=== PATIENT | female | born 2000 | race Caucasian/White ===

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

== ENCOUNTER → 2022-07-23 | Outpatient (CLI) | payer OTHER ==
[2022-07-23 17:54] LABS: Basophils # (A) 0.06 X 10*3/uL (0.00-0.10); Basophils % (A) 0.6 %; HCT 46.8 % (37.2-46.3); HGB 15.2 g/dL (12.0-15.0); Immature Grans, Automated 0.3 %; Lymphocytes # (A) 4.31 X 10*3/uL (0.90-5.00); MCH 26.6 pg (27.0-32.0); MCHC 32.5 g/dL (32.0-37.0); Mean Platelet Volume 10.1 fL (9.5-12.2); Monocytes # (A) 0.52 X 10*3/uL (0.20-1.00); Monocytes % (A) 5.1 %; NRBC Per 100 WBC 0 /100 WBCS (0.0-0.0); Neutrophils # (A) 5.24 X 10*3/uL (1.80-7.70); Platelet Count 297 X 10*3/uL (140-440); RBC 5.71 X 10*6/uL (4.10-5.20); RDW 13.5 % (11.5-14.5); WBC 10.26 X 10*3/uL (4.50-10.00)
--- NOTE | 2022-07-23 18:58 | US ---
EXAMINATION TYPE: US thyroid st tissue head/neck DATE OF EXAM: 07/23/2022 COMPARISON: 11/10/2017 CLINICAL HISTORY: 22-year-old female E04.9 Goiter. Nontoxic goiter per order. TECHNIQUE: Multiple sonographic images of the thyroid gland are obtained. FINDINGS: GLAND SIZE: Right Lobe: 4.4 x 1.6 x 1.5 cm Overall Parenchyma: Slightly heterogeneous. Left Lobe: 5.2 x 1.4 x 1.3 cm Overall Parenchyma: Slightly heterogeneous. Isthmus Thickness: 0.25 cm NODULES RIGHT: # of nodules measured on right: 1 1. 0.5 X 0.3 x 0.1 cm, upper lateral, small colloid cyst. Prior size: Not seen prior LEFT: # of nodules measured on left: 0 ISTHMUS: # of nodules measured in the isthmus: 0 Bilateral neck scanned, no evidence of lymphadenopathy. IMPRESSION: Borderline size of the thyroid gland. A solitary small 5 mm colloid cyst on the right.
[2022-07-23 20:24] LABS: ALT 33 U/L (8-44); AST 24 U/L (13-35); African American GFR (CKD) 112.7 (60.0-200.0); Albumin 4.5 g/dL (3.8-4.9); Albumin/Globulin Ratio 1.38 (1.60-3.17); Alkaline Phosphatase 98 U/L (41-126); BUN/Creat Ratio 11.86 Ratio (12.00-20.00); Blood Urea Nitrogen 10.2 mg/dL (9.0-27.0); Calcium 10.1 mg/dL (8.7-10.3); Carbon Dioxide 23.8 mmol/L (20.0-27.5); Chloride 102 mmol/L (96-109); Chol/HDL Ratio 4.09 Ratio; Globulin 3.3 g/dL (1.6-3.3); Glucose 92 mg/dL (70-110); LDL Cholesterol,Calculated 104.4 mg/dL (0.0-131.0); Non-African American GFR(CKD) 97.2 (60.0-200.0); Potassium 4.3 mmol/L (3.5-5.5); Sodium 140 mmol/L (135-145); Total Protein 7.8 g/dL (6.2-8.2); VLDL Calculation 13.52 mg/dL (5.00-40.00)
== END | disposition home or self-care (01) ==
LOC: RADUSWWP 10:40
PROVIDERS: ATTEND Pediatrics Adolescent Medicine
DX: E04.1 Nontoxic single thyroid nodule (principal); J45.51 Severe persistent asthma with (acute) exacerbation; E55.9 Vitamin D deficiency, unspecified; N92.6 Irregular menstruation, unspecified; R63.5 Abnormal weight gain; Z68.54 Body mass index [BMI] pediatric, 95th percentile for age to less than 120% of the 95th percentile for age
CPT/HCPCS: 76536; 80053; 80061; 82306; 82626; 83036; 84403; 84439; 84443; 85025

== ENCOUNTER → 2022-09-02 | Outpatient (CLI) | payer OTHER ==
--- NOTE | 2022-09-03 06:21 | US ---
EXAMINATION TYPE: US pelvic complete DATE OF EXAM: 09/02/2022 COMPARISON: CT 2016 CLINICAL HISTORY: N92.6 IRREGULAR MENSTRUATION. Irregular menses TECHNIQUE: Transabdominal (TA). Date of LMP: 08/26/22 EXAM MEASUREMENTS: Uterus: 7.1 x 3.4 x 4.8 cm Endometrial Stripe: 0.6 cm Right Ovary: 2.2 x 3.1 x 1.7 cm Left Ovary: 3.0 x 2.3 x 2.3 cm 1. Uterus: Anteverted wnl 2. Endometrium: wnl 3. Right Ovary: follicles noted 4. Left Ovary: cystic area = 2.1 x 1.9 x 1.8cm 5. Bilateral Adnexa: wnl 6. Posterior cul-de-sac: wnl Anteverted uterus. Endometrial stripe measures within normal limits for proliferative phase of menstr ual cycle. No free fluid. Both ovaries seen and are symmetric and within normal limits in size. Left ovary has 2.1 cm dominant follicle or simple small ovarian cyst. IMPRESSION: No suspicious abnormalities identified on transabdominal pelvic ultrasound.
== END | disposition home or self-care (01) ==
LOC: RADUSWWP 16:43
PROVIDERS: ATTEND Pediatrics Adolescent Medicine
DX: N92.6 Irregular menstruation, unspecified (principal)
CPT/HCPCS: 76856

== ENCOUNTER → 2024-01-14 | Outpatient (CLI) | payer OTHER ==
--- NOTE | 2024-01-14 17:59 | US ---
EXAMINATION TYPE: US pelvic complete DATE OF EXAM: 01/14/2024 COMPARISON: NONE CLINICAL INDICATION: Female, 23 years old with history of E28.2 POLYCYSTIC OVARIAN SYNDROME; PCOS TECHNIQUE: TA. Transabdominal sonographic images of the pelvis were acquired. Date of LMP: 01-01-2024 EXAM MEASUREMENTS: Uterus: 8.0 x 4.2 x 3.4 cm Endometrial Stripe: 0.8 cm Right Ovary: 2.2 x 2.5 x 1.6 cm Left Ovary: 2.7 x 2.1 x 2.2 cm 1. Uterus: Anteverted wnl 2. Endometrium: wnl 3. Right Ovary: wnl,No evidence for polycystic ovarian morphology. 4. Left Ovary: 1.5 x 1.4 x 1.2cm No evidence for polycystic ovarian morphology. 5. Bilateral Adnexa: wnl 6. Posterior cul-de-sac: wnl IMPRESSION: No evidence for acute process. No evidence for polycystic ovarian morphology.
== END | disposition home or self-care (01) ==
LOC: RADUSWWP 15:26
PROVIDERS: ATTEND Pediatrics Adolescent Medicine
DX: E28.2 Polycystic ovarian syndrome (principal); E04.9 Nontoxic goiter, unspecified
CPT/HCPCS: 76536; 76856

== ENCOUNTER 2024-09-19 17:53 | Emergency (ER) | payer OTHER ==
[2024-09-19 18:24] VITALS: RESP 18; TEMP 97.6
--- NOTE | 2024-09-19 18:26 | ED ---
Dizziness HPI - General Source: patient, family, RN notes reviewed Mode of arrival: wheelchair Limitations: no limitations - History of Present Illness MD Complaint: dizziness, lightheadedness Onset/Timin -: days(s) Description: lightheadedness History of Trauma: No <Shine Walters - Last Filed: 09/19/24 18:24> <Monica Herrera - Last Filed: 09/25/24 22:50> - General Chief Complaint: Dizziness Stated Complaint: cough vomiting Time Seen by Provider: 09/19/24 18:10 - History of Present Illness Initial Comments: This is a 24-year-old female presenting with mother for hemoptysis x 1 day. Patient states she was diagnosed with bronchitis about 1 week ago and recently finished prescribed steroids. States she has been coughing up blood since earlier today along with nausea and vomiting of yellow bile. Patient endorses associated dizziness/lightheadedness with position change. Patient endorses history of asthma. Patient denies recent fever, chills, fatigue, chest pain, dyspnea, abdominal pain. (Shine Walters) 24-year-old female presenting with chief complaint of hemoptysis. Patient was diagnosed with bronchitis about 1 week ago, she was experiencing persistent cough and shortness of breath. She recently finished her Medrol Dosepak. She is currently on doxycycline. States that earlier today she was coughing up blood. She is also having nausea and vomiting. She does admit to some dizziness with changing positions. Patient does have history of asthma. No fever, chills, chest pain, abdominal pain, lower extremity swelling, control use, history of blood clots, recent surgery or travel. (Monica Herrera) - Related Data Home Medications Medication Instructions Recorded Confirmed Mometasone/Formoterol [Dulera 200 2 puff INHALATION RT-BID 03/14/16 08/08/18 Mcg/5 Mcg Inhaler] Albuterol Nebulized [Ventolin 2.5 mg INHALATION RT-Q4H PRN 04/08/18 08/08/18 Nebulized] Fexofenadine HCl 60 mg PO BID 04/08/18 08/08/18 Ipratropium-Albuterol Nebulize 3 ml INHALATION RT-BID PRN 04/08/18 08/08/18 [Duoneb 0.5 mg-3 mg/3 ml Soln] Albuterol Inhaler [Ventolin Hfa 1 - 2 puff INHALATION RT-Q6H PRN 08/08/18 08/08/18 Inhaler] Budesonide 1 mg PO DIRECTED 08/08/18 08/08/18 Cholecalciferol [Vitamin D3] 1,000 unit PO DAILY 08/08/18 08/08/18 Metoclopramide HCl [Reglan] 10 mg PO TID PRN 08/08/18 08/08/18 Omeprazole 40 mg PO BID 08/08/18 08/08/18 Previous Rx's Medication Instructions Recorded Promethazine [Phenergan] 25 mg PO Q6HR #10 tablet 08/08/18 predniSONE 50 mg PO DAILY 5 Days #5 tab 09/19/24 Allergies Allergy/AdvReac Type Severity Reaction Status Date / Time carbinoxamine maleate Allergy Severe Rash/Hives Verified 09/19/24 18:15 [From Rondec] ketorolac Allergy Severe Dyspnea Verified 09/19/24 18:15 ondansetron HCl [From Zofran] Allergy Severe Rash/Hives Verified 09/19/24 18:15 pseudoephedrine HCl Allergy Severe Rash/Hives Verified 09/19/24 18:15 [From Rondec] ranitidine HCl [From Zantac] Allergy Severe Rash/Hives Verified 09/19/24 18:15 adhesive Allergy Mild Itching Verified 09/19/24 18:15 cetirizine HCl [From Zyrtec] Allergy Rash/Hives Verified 09/19/24 18:15 Review of Systems ROS Other: All systems not noted in ROS Statement are negative. <Shine Walters - Last Filed: 09/19/24 18:24> ROS Other: All systems not noted in ROS Statement are negative. <Monica Herrera - Last Filed: 09/25/24 22:50> ROS Statement: Those systems with pertinent positive or pertinent negative responses have been documented in the HPI. Past Medical History Past Medical History: Asthma, Pneumonia Additional Past Medical History / Comment(s): c-diff, eosinophilic esophagitis, fracture of the left foot 2017 History of Any Multi-Drug Resistant Organisms: None Reported Date of last positivie culture/infection: 2012 MDRO Source:: stool Past Surgical History: Adenoidectomy, Ear Surgery Additional Past Surgical History / Comment(s): polyps removed from nose in January 2016 Past Anesthesia/Blood Transfusion Reactions: No Reported Reaction Past Psychological History: No Psychological Hx Reported Smoking Status: Never smoker Past Alcohol Use History: None Reported Past Drug Use History: None Reported - Past Family History Mother Family Medical History: Diabetes Mellitus, Hypertension Additional Family Medical History / Comment(s): Chronic ear infections maternal grandma with hearing loss. Paternal Grandma Type 2 diabetes, sinus problems, and seasonal allergies. Mother is HIV +, patient was negative. <Shine Walters - Last Filed: 09/19/24 18:24> General Exam Limitations: no limitations <Shine Walters - Last Filed: 09/19/24 18:24> General appearance: alert, in no apparent distress Head exam: Present: atraumatic, normocephalic, normal inspection Eye exam: Present: normal appearance, EOMI Neck exam: Present: normal inspection. Absent: meningismus Respiratory exam: Present: wheezes. Absent: respiratory distress, rales, rhonchi, stridor Cardiovascular Exam: Present: regular rate, normal rhythm, normal heart sounds. Absent: systolic murmur, diastolic murmur, rubs, gallop, clicks Extremities exam: Absent: pedal edema Neurological exam: Present: alert, oriented X3 Psychiatric exam: Present: normal affect, normal mood Skin exam: Present: warm, dry, normal color <Monica Herrera - Last Filed: 09/25/24 22:50> - General Exam Comments Initial Comments: Visual Physical Exam Vital signs reviewed General: Well-appearing, nontoxic, no acute distress. Head: Normocephalic, atraumatic Eyes: PERRLA, EOMI ENT: Airway patent Chest: Nonlabored breathing Skin: No visual rash, normal skin tone Neuro: Alert and oriented 3 Musculoskeletal: No gross abnormalities (Shine Walters) Course Vital Signs 09/19/24 09/19/24 09/19/24 18:15 20:56 21:00 Temperature 97.6 F Pulse Rate 64 76 64 Respiratory 18 18 Rate Blood Pressure 94/59 128/73 O2 Sat by Pulse 94 L 98 Oximetry 09/19/24 21:14 Temperature Pulse Rate 72 Respiratory Rate Blood Pressure O2 Sat by Pulse Oximetry Medical Decision Making <Shine Walters - Last Filed: 09/19/24 18:24> - Lab Data Result diagrams: 09/19/24 18:53 09/19/24 18:53 <Monica Herrera - Last Filed: 09/25/24 22:50> - Medical Decision Making I completed the quick note portion of this chart signed MAURISIO Hunt (Shine Walters) Was pt. sent in by a medical professional or institution ([facility] Hurtado, EXERCISE EQUIPMENT SPECIALIST, urgent care, hospital, or custodial...) When possible be specific @ -No Did you speak to anyone other than the patient for history (EMS, parent, family, police, friend...)? What history was obtained from this source @ -Mother Did you review nursing and triage notes (agree or disagree)? Why? @ -I reviewed and agree with nursing and triage notes Were old charts reviewed (outside hosp., previous admission, EMS record, old EKG, old radiological studies, urgent care reports/EKG's, custodial records)? Report findings @ -No old charts were reviewed Differential Diagnosis (chest pain, altered mental status, abdominal pain women, abdominal pain men, vaginal bleeding, weakness, fever, dyspnea, syncope, headache, dizziness, GI bleed, back pain, seizure, CVA, palpatations, mental health, musculoskeletal)? @ -MDM Differential Dyspnea: Coronary syndrome, arrhythmia, tamponade, asthma, COPD, pulmonary embolism, pneumonia, pneumothorax, pulmonary effusion, anaphylaxis, diabetic ketoacidosis, flailed chest, pulmonary contusion, diaphragmatic rupture, anemia, neuromuscular this is not meant to be an all-inclusive list. EKG interpreted by me (3pts min.). @ -EKG shows sinus rhythm ventricular rate 68. ID interval 154. QRS 84. QT 401. QTc 419. X-rays interpreted by me (1pt min.). @ -Chest x-ray shows posterior infiltrate likely left lower lobe. Correlate for pneumonia. CT interpreted by me (1pt min.). @ -CTA of the chest shows no acute pulmonary embolism. Diffuse thickening of the distal esophagus. U/S interpreted by me (1pt. min.). @ -None done What testing was considered but not performed or refused? (CT, X-rays, U/S, labs)? Why? @ -None What meds were considered but not given or refused? Why? @ -None Did you discuss the management of the patient with other professionals (professionals i.e. , PA, EXERCISE EQUIPMENT SPECIALIST, lab, RT, psych nurse, social worker health services, digital media planner, teacher, certified juvenile probation officer, case resolution specialist)? Give summary @ -No Was smoking cessation discussed for >3mins.? @ -No Was critical care preformed (if so, how long)? @ -No Were there social determinants of health that impacted care today? How? (Homelessness, low income, unemployed, alcoholism, drug addiction, transportation, low edu. Level, literacy, decrease access to med. care, long term, rehab)? @ -No Was there de-escalation of care discussed even if they declined (Discuss DNR or withdrawal of care, Hospice)? DNR status @ -No What co-morbidities impacted this encounter? (DM, HTN, Smoking, COPD, CAD, Cancer, CVA, ARF, Chemo, Hep., AIDS, mental health diagnosis, sleep apnea, morbid obesity)? @ -None Was patient admitted / discharged? Hospital course, mention meds given and route, prescriptions, significant lab abnormalities, going to OR and other pertinent info. @ -24-year-old female presenting with chief complaint of hemoptysis. Was diagnosed with bronchitis, just finished Medrol Dosepak and is currently on doxycycline. Physical exam diffuse inspiratory expiratory wheezes are heard on auscultation. Negative troponin. D-dimer 0.83. Chest x-ray advise correlating for pneumonia, however on the CTA which is negative for pulmonary embolism, no is negative for pneumonia. The patient is already on doxycycline and given that CT is a more accurate image of the chest we will not change her treatment. Patient was treated with DuoNeb and Solu-Medrol. On reassessment wheezes have improved. Patient will be treated with prednisone at home and is instructed to use her albuterol inhaler as needed. Finish her course of doxycycline. Educated on today's findings. CTA also showed diffuse thickening of the distal esophagus, made patient aware of today's findings, states that she does have history of eosinophilic esophagitis. She is instructed to follow-up with PCP and GI regarding today's findings. Discharged. Follow-up with PCP. Report back to ER with any new or worsening symptoms. Discussed return parameters and answered all questions. Patient conveyed verbal understanding and agreed to the plan. I discussed this case in detail with my attending Dr. Reed Undiagnosed new problem with uncertain prognosis? @ -No Drug Therapy requiring intensive monitoring for toxicity (Heparin, Nitro, Insulin, Cardizem)? @ -No Were any procedures done? @ -No Diagnosis/symptom? @ -Bronchitis, asthma exacerbation Acute, or Chronic, or Acute on Chronic? @ -Acute Uncomplicated (without systemic symptoms) or Complicated (systemic symptoms)? @ -Complicated Side effects of treatment? @ -No Exacerbation, Progression, or Severe Exacerbation? @ -No Poses a threat to life or bodily function? How? (Chest pain, [place], [place], pneumonia, PE, COPD, DKA, ARF, appy, cholecystitis, CVA, Diverticulitis, Homicidal, Suicidal, threat to staff... and all critical care pts) @ -Potential if not treated properly (Monica Herrera) - Lab Data Lab Results 09/19/24 09/19/24 09/19/24 Range/Units 18:53 18:53 18:53 WBC 9.1 (3.8-10.6) k/uL RBC 5.02 (3.80-5.40) m/uL Hgb 12.9 (11.4-16.0) gm/dL Hct 39.8 (34.0-46.0) % MCV 79.3 L (80.0-100.0) fL MCH 25.7 (25.0-35.0) pg MCHC 32.4 (31.0-37.0) g/dL RDW 14.0 (11.5-15.5) % Plt Count 338 (150-450) k/uL MPV 7.6 Neutrophils % 71 % Lymphocytes % 22 % Monocytes % 4 % Eosinophils % 1 % Basophils % 1 % Neutrophils # 6.5 (1.3-7.7) k/uL Lymphocytes # 2.0 (1.0-4.8) k/uL Monocytes # 0.4 (0-1.0) k/uL Eosinophils # 0.1 (0-0.7) k/uL Basophils # 0.1 (0-0.2) k/uL PT 12.1 (10.0-12.5) sec INR 1.1 (<1.2) D-Dimer (<0.60) mg/L FEU Sodium 139 (137-145) mmol/L Potassium 3.9 (3.5-5.1) mmol/L Chloride 106 (98-107) mmol/L Carbon Dioxide 26 (22-30) mmol/L Anion Gap 7 mmol/L BUN 13 (7-17) mg/dL Creatinine 0.81 (0.52-1.04) mg/dL Est GFR (CKD-EPI)AfAm >90 (>60 ml/min/1.73 sqM) Est GFR (CKD-EPI)NonAf >90 (>60 ml/min/1.73 sqM) Glucose 96 (74-99) mg/dL Plasma Lactic Acid Michelet (0.7-2.0) mmol/L Calcium 8.8 (8.4-10.2) mg/dL Total Bilirubin 0.9 (0.2-1.3) mg/dL AST 23 (14-36) U/L ALT 28 (4-34) U/L Alkaline Phosphatase 61 (38-126) U/L Troponin I (0.000-0.034) ng/mL Total Protein 6.5 (6.3-8.2) g/dL Albumin 3.6 (3.5-5.0) g/dL 09/19/24 09/19/24 09/19/24 Range/Units 18:53 18:53 18:53 WBC (3.8-10.6) k/uL RBC (3.80-5.40) m/uL Hgb (11.4-16.0) gm/dL Hct (34.0-46.0) % MCV (80.0-100.0) fL MCH (25.0-35.0) pg MCHC (31.0-37.0) g/dL RDW (11.5-15.5) % Plt Count (150-450) k/uL MPV Neutrophils % % Lymphocytes % % Monocytes % % Eosinophils % % Basophils % % Neutrophils # (1.3-7.7) k/uL Lymphocytes # (1.0-4.8) k/uL Monocytes # (0-1.0) k/uL Eosinophils # (0-0.7) k/uL Basophils # (0-0.2) k/uL PT (10.0-12.5) sec INR (<1.2) D-Dimer 0.83 H (<0.60) mg/L FEU Sodium (137-145) mmol/L Potassium (3.5-5.1) mmol/L Chloride (98-107) mmol/L Carbon Dioxide (22-30) mmol/L Anion Gap mmol/L BUN (7-17) mg/dL Creatinine (0.52-1.04) mg/dL Est GFR (CKD-EPI)AfAm (>60 ml/min/1.73 sqM) Est GFR (CKD-EPI)NonAf (>60 ml/min/1.73 sqM) Glucose (74-99) mg/dL Plasma Lactic Acid Michelet 1.3 (0.7-2.0) mmol/L Calcium (8.4-10.2) mg/dL Total Bilirubin (0.2-1.3) mg/dL AST (14-36) U/L ALT (4-34) U/L Alkaline Phosphatase (38-126) U/L Troponin I <0.012 (0.000-0.034) ng/mL Total Protein (6.3-8.2) g/dL Albumin (3.5-5.0) g/dL Disposition <Shine Walters - Last Filed: 09/19/24 18:24> Is patient prescribed a controlled substance at d/c from ED?: No Time of Disposition: 22:20 <Monica Herrera - Last Filed: 09/25/24 22:50> Clinical Impression: Asthma exacerbation, Bronchitis Disposition: HOME SELF-CARE Condition: Fair Instructions (If sedation given, give patient instructions): Asthma (ED), Acute Bronchitis (ED) Additional Instructions: Follow-up with your PCP. Follow-up with GI regarding thickening of the esophagus on CT. Report back to ER with any new or worsening symptoms. Take medication as prescribed Prescriptions: predniSONE 50 mg PO DAILY 5 Days #5 tab Referrals: Tamela Pimentel [facility] [REFERRING] - 1-2 days
[2024-09-19] MEDS: METOCLOPRAMIDE 5 MG/ML 2 ML VIAL IVP STA (19:01)
[2024-09-19] MEDS: SODIUM CHLORIDE 0.9% 1,000 ML IV STA (19:01)
[2024-09-19 19:03] LABS: Basophils # (A) 0.1 k/uL (0-0.2); Basophils % (A) 1 %; Eosinophils # (A) 0.1 k/uL (0-0.7); Eosinophils % (A) 1 %; HCT 39.8 % (34.0-46.0); HGB 12.9 gm/dL (11.4-16.0); Lymphocytes % (A) 22 %; MCH 25.7 pg (25.0-35.0); MCHC 32.4 g/dL (31.0-37.0); MCV 79.3 fL (80.0-100.0); Mean Platelet Volume 7.6; Monocytes # (A) 0.4 k/uL (0-1.0); Monocytes % (A) 4 %; Neutrophils # (A) 6.5 k/uL (1.3-7.7); Neutrophils % (A) 71 %; Platelet Count 338 k/uL (150-450); RBC 5.02 m/uL (3.80-5.40); WBC 9.1 k/uL (3.8-10.6)
[2024-09-19 19:19] LABS: INR 1.1 (<1.2); Prothrombin Time 12.1 sec (10.0-12.5)
[2024-09-19 19:24] LABS: ALT 28 U/L (4-34); AST 23 U/L (14-36); African American GFR (CKD) >90 (>60 ml/min/1.73 sqM); Albumin 3.6 g/dL (3.5-5.0); Alkaline Phosphatase 61 U/L (38-126); Anion Gap 7 mmol/L; Blood Urea Nitrogen 13 mg/dL (7-17); Calcium 8.8 mg/dL (8.4-10.2); Carbon Dioxide 26 mmol/L (22-30); Chloride 106 mmol/L (98-107); Glucose 96 mg/dL (74-99); Non-African American GFR(CKD) >90 (>60 ml/min/1.73 sqM); Potassium 3.9 mmol/L (3.5-5.1); Sodium 139 mmol/L (137-145); Total Bilirubin 0.9 mg/dL (0.2-1.3); Total Protein 6.5 g/dL (6.3-8.2)
--- NOTE | 2024-09-19 20:37 | XR ---
EXAMINATION TYPE: XR chest 2V DATE OF EXAM: 09/19/2024 COMPARISON: 04/08/2018 INDICATION: Hemoptysis TECHNIQUE: Frontal and lateral views of the chest are obtained. FINDINGS: The heart size is normal. The pulmonary vasculature is normal. Posterior infiltrate is present.. IMPRESSION: 1. Posterior infiltrate likely left lower lobe. Correlate for pneumonia. Follow-up is recommended. [facility], , 09/19/2024 8:35 PM
[2024-09-19] MEDS: methylPREDNISolone SOD SUCCI 125 MG/2 ML VIAL IV ONE (20:49)
[2024-09-19 20:57] VITALS: BP 128/73
[2024-09-19] MEDS: IPRATROPIUM-ALBUTEROL 3 ML NEB INHALATION STA (20:59)
[2024-09-19 21:14] VITALS: PULSE 72
--- NOTE | 2024-09-19 21:46 | CT ---
CTA CHEST EXAMINATION TYPE: CT chest angio for PE DATE OF EXAM: 09/19/2024 INDICATION: SOB, hemoptysis. CT DLP: 801.3 mGycm, Automated exposure control for dose reduction was used. CONTRAST: Patient injected with 100 ml mL of Isovue 300. COMPARISON: None TECHNIQUE: CT of the chest is performed on a spiral scan at 2 mm thick sections. Study is performed with intravenous contrast timed for evaluation for pulmonary embolism. This will limit additional po rtions of the evaluation. 3-D MIP images reconstructed by the technologist are reviewed on the compu ter in the coronal and sagittal planes. FINDINGS: No persistent filling defects are evident to suggest an acute pulmonary embolism. No mediastinal or hilar adenopathy enlarged by CT criteria is evident. The ascending aorta diameter at the level of the main pulmonary artery is 2.5 cm. The main pulmonary artery diameter at the bifurcation is 2.0 cm. No suspicious focal consolidations are evident. There is some mild thickening or infiltrate suprahila r regions bilaterally. Diffuse thickening of the superior the esophagus. Additional workup is recommended. Limited CT sections were through the upper abdomen. Upper abdomen appears unremarkable. IMPRESSION: 1. No acute pulmonary embolism. 2. Diffuse thickening of the distal esophagus. Additional workup is recommended. [facility], , 09/19/2024 9:43 PM
== END 2024-09-19 22:56 | disposition home or self-care (01) ==
LOC: EC 17:53
DX: J45.901 Unspecified asthma with (acute) exacerbation (principal); Z88.6 Allergy status to analgesic agent; Z88.8 Allergy status to other drugs, medicaments and biological substances; Z91.09 Other allergy status, other than to drugs and biological substances
CPT/HCPCS: 96374; 96375; 96361; 36415; 94640; 93005; 85379; 80053; 83605; 84484; 85025; 85610; 71046; 71275; 99284; J2765; Q9967; J2919; 99285

== ENCOUNTER 2024-11-10 13:45 | Emergency (ER) | payer OTHER ==
--- NOTE | 2024-11-10 14:38 | ED ---
ENT HPI - General Chief complaint: Dental/Oral Stated complaint: Dental pain Time Seen by Provider: 11/10/24 14:35 Source: patient, RN notes reviewed Mode of arrival: ambulatory Limitations: no limitations - History of Present Illness Initial comments: 24-year-old female presenting for dental pain x 1 week. Reports pain in the right lower molar that is worsening in severity. States she has a history of dental abscesses. Denies fever, difficulty swallowing or breathing. - Related Data Home Medications Medication Instructions Recorded Confirmed Mometasone/Formoterol [Dulera 200 2 puff INHALATION RT-BID 03/14/16 08/08/18 Mcg/5 Mcg Inhaler] Albuterol Nebulized [Ventolin 2.5 mg INHALATION RT-Q4H PRN 04/08/18 08/08/18 Nebulized] Fexofenadine HCl 60 mg PO BID 04/08/18 08/08/18 Ipratropium-Albuterol Nebulize 3 ml INHALATION RT-BID PRN 04/08/18 08/08/18 [Duoneb 0.5 mg-3 mg/3 ml Soln] Albuterol Inhaler [Ventolin Hfa 1 - 2 puff INHALATION RT-Q6H PRN 08/08/18 08/08/18 Inhaler] Budesonide 1 mg PO DIRECTED 08/08/18 08/08/18 Cholecalciferol [Vitamin D3] 1,000 unit PO DAILY 08/08/18 08/08/18 Metoclopramide HCl [Reglan] 10 mg PO TID PRN 08/08/18 08/08/18 Omeprazole 40 mg PO BID 08/08/18 08/08/18 Previous Rx's Medication Instructions Recorded Promethazine [Phenergan] 25 mg PO Q6HR #10 tablet 08/08/18 predniSONE 50 mg PO DAILY 5 Days #5 tab 09/19/24 Amoxic-Pot Clav 875-125Mg 1 tab PO Q12HR #20 tab 11/10/24 [Augmentin 875-125] Allergies Allergy/AdvReac Type Severity Reaction Status Date / Time carbinoxamine maleate Allergy Severe Rash/Hives Verified 09/19/24 18:15 [From Rondec] ketorolac Allergy Severe Dyspnea Verified 09/19/24 18:15 ondansetron HCl [From Zofran] Allergy Severe Rash/Hives Verified 09/19/24 18:15 pseudoephedrine HCl Allergy Severe Rash/Hives Verified 09/19/24 18:15 [From Rondec] ranitidine HCl [From Zantac] Allergy Severe Rash/Hives Verified 09/19/24 18:15 adhesive Allergy Mild Itching Verified 09/19/24 18:15 cetirizine HCl [From Zyrtec] Allergy Rash/Hives Verified 09/19/24 18:15 Review of Systems ROS Statement: Those systems with pertinent positive or pertinent negative responses have been documented in the HPI. ROS Other: All systems not noted in ROS Statement are negative. Past Medical History Past Medical History: Asthma, Pneumonia Additional Past Medical History / Comment(s): c-diff, eosinophilic esophagitis, fracture of the left foot 2017 History of Any Multi-Drug Resistant Organisms: None Reported Date of last positivie culture/infection: 2012 MDRO Source:: stool Past Surgical History: Adenoidectomy, Ear Surgery Additional Past Surgical History / Comment(s): polyps removed from nose in January 2016 Past Anesthesia/Blood Transfusion Reactions: No Reported Reaction Past Psychological History: No Psychological Hx Reported Smoking Status: Never smoker Past Alcohol Use History: None Reported Past Drug Use History: None Reported - Past Family History Mother Family Medical History: Diabetes Mellitus, Hypertension Additional Family Medical History / Comment(s): Chronic ear infections maternal grandma with hearing loss. Paternal Grandma Type 2 diabetes, sinus problems, and seasonal allergies. Mother is HIV +, patient was negative. General Exam Limitations: no limitations General appearance: alert, in no apparent distress Head exam: Present: atraumatic, normocephalic, normal inspection Eye exam: Present: normal appearance, PERRL, EOMI. Absent: scleral icterus, conjunctival injection, periorbital swelling ENT exam: Present: normal exam, mucous membranes moist, other (Mild inflammation surrounding right lower molar, fluctuant masses or drainage) Neck exam: Present: normal inspection. Absent: tenderness, meningismus, lymphadenopathy Respiratory exam: Present: normal lung sounds bilaterally. Absent: respiratory distress, wheezes, rales, rhonchi, stridor Cardiovascular Exam: Present: regular rate, normal rhythm, normal heart sounds. Absent: systolic murmur, diastolic murmur, rubs, gallop, clicks Neurological exam: Present: alert, oriented X3 Psychiatric exam: Present: normal affect, normal mood Skin exam: Present: warm, dry, intact, normal color. Absent: rash Course Vital Signs 11/10/24 13:48 Pulse Rate 80 Respiratory 20 Rate Blood Pressure 147/86 O2 Sat by Pulse 98 Oximetry Medical Decision Making - Medical Decision Making Was pt. sent in by a medical professional or institution (RON Hurtado, HEAD OF TRAINING AND DEVELOPMENT, urgent care, hospital, or [facility]...) When possible be specific @ -No Did you speak to anyone other than the patient for history (EMS, parent, family, police, friend...)? What history was obtained from this source @ -No Did you review nursing and triage notes (agree or disagree)? Why? @ -I reviewed and agree with nursing and triage notes Were old charts reviewed (outside hosp., previous admission, EMS record, old EKG, old radiological studies, urgent care reports/EKG's, [facility] records)? Report findings @ -No old charts were reviewed Differential Diagnosis (chest pain, altered mental status, abdominal pain women, abdominal pain men, vaginal bleeding, weakness, fever, dyspnea, syncope, headache, dizziness, GI bleed, back pain, seizure, CVA, palpatations, mental health, musculoskeletal)? @ -Dental abscess, dental infection, Tyrone's angina, gingivitis EKG interpreted by me (3pts min.). @ -None X-rays interpreted by me (1pt min.). @ -None done CT interpreted by me (1pt min.). @ -None done U/S interpreted by me (1pt. min.). @ -None done What testing was considered but not performed or refused? (CT, X-rays, U/S, labs)? Why? @ -None What meds were considered but not given or refused? Why? @ -Toradol not given as patient states she is highly allergic to all NSAIDs Did you discuss the management of the patient with other professionals (professionals i.e. RON Hurtado, HEAD OF TRAINING AND DEVELOPMENT, lab, RT, psych nurse, social media analyst, director of vocational training, teacher, admissions officer, case operator)? Give summary @ -No Was smoking cessation discussed for >3mins.? @ -No Was critical care preformed (if so, how long)? @ -No Were there social determinants of health that impacted care today? How? (Homelessness, low income, unemployed, alcoholism, drug addiction, transportation, low edu. Level, literacy, decrease access to med. care, usp, rehab)? @ -No Was there de-escalation of care discussed even if they declined (Discuss DNR or withdrawal of care, Hospice)? DNR status @ -No What co-morbidities impacted this encounter? (DM, HTN, Smoking, COPD, CAD, Cancer, CVA, ARF, Chemo, Hep., AIDS, mental health diagnosis, sleep apnea, morbid obesity)? @ -None Was patient admitted / discharged? Hospital course, mention meds given and route, prescriptions, significant lab abnormalities, going to OR and other pertinent info. @ -Charge. This is a 24-year-old female presenting for dental pain x 1 week. Vital signs within acceptable limits. No fluctuant masses or abscess visualized on physical exam. Prescribed antibiotics and analgesics. Advised follow-up with dentist. Appropriate return precautions/supportive care discussed and patient is agreeable to plan. Case was discussed with my ED attending Dr. Reed Undiagnosed new problem with uncertain prognosis? @ -No Drug Therapy requiring intensive monitoring for toxicity (Heparin, Nitro, Insulin, Cardizem)? @ -No Were any procedures done? @ -No Diagnosis/symptom? @ -Dental infection Acute, or Chronic, or Acute on Chronic? @ -Acute Uncomplicated (without systemic symptoms) or Complicated (systemic symptoms)? @ -Uncomplicated Side effects of treatment? @ -No Exacerbation, Progression, or Severe Exacerbation? @ -No Poses a threat to life or bodily function? How? (Chest pain, [place], [place], pneumonia, PE, COPD, DKA, ARF, appy, cholecystitis, CVA, Diverticulitis, Homicidal, Suicidal, threat to staff... and all critical care pts) @ -No Disposition Clinical Impression: Dental infection Disposition: HOME SELF-CARE Condition: Stable Instructions (If sedation given, give patient instructions): Toothache (ED) Additional Instructions: Take Augmentin twice daily for 10 days. Take Tylenol threes as needed for pain. Please return to the Emergency Department if symptoms worsen or any other concerns. Prescriptions: Amoxic-Pot Clav 875-125Mg [Augmentin 875-125] 1 tab PO Q12HR #20 tab Is patient prescribed a controlled substance at d/c from ED?: No Referrals: Tova Kebede MD [Primary Care Provider] - 1-2 days Time of Disposition: 15:09
[2024-11-10] MEDS: ACET/COD 300 MG/30 MG STARTER PACK 6 TAB BTL PO STA (15:16)
[2024-11-10 15:20] VITALS: BP 141/86; PULSE 76; RESP 18; TEMP 98.1
== END 2024-11-10 15:18 | disposition home or self-care (01) ==
LOC: EC 13:45
DX: K04.7 Periapical abscess without sinus (principal); Z88.8 Allergy status to other drugs, medicaments and biological substances; Z91.09 Other allergy status, other than to drugs and biological substances
CPT/HCPCS: 99282